=== PATIENT | female | born 2000 | race Caucasian/White ===

== ENCOUNTER 2021-02-10 05:18 | Inpatient (IN) ==
[2021-02-10] MEDS ORDERED: ONDANSETRON 4 MG/2 ML VIAL IV PRN (05:34)
[2021-02-10] MEDS ORDERED: MEPERIDINE 50 MG/1 ML VIAL IV PRN (05:34)
[2021-02-10] MEDS ORDERED: BUTORPHANOL 2 MG/ML VIAL IV PRN (05:34)
[2021-02-10] MEDS ORDERED: OXYTOCIN/LR 20 UNIT/1,000 ML BAG IV SCH (06:00)
[2021-02-10] MEDS ORDERED: LACTATED RINGERS 1,000 ML IV SCH ×3 (06:00→09:00)
[2021-02-10 06:45] LABS: Basophils % 0.4 % (0.0-0.8); Eosinophils % 0.4 % (0.00-10.9); Hematocrit 31.7 VOL% (35.7-47.0); Immature Granulocytes % 1.8 %; Immature Granulocytes Absolute 0.14 #; Lymphocytes # 1.7 10*3/uL (1.4-4.0); Lymphocytes % 22.4 % (21.3-54.2); Mean Corpuscular HGB Conc 31.5 GM/DL (32-36); Mean Corpuscular Volume 91.1 FL (87-102); Mean Platelet Volume 9.6 FL (9.6-12.0); Monocytes % 4.1 % (1.7-12.7); Neutrophils % 70.9 % (38.7-73.9); Platelet Count 234 T/CUMM (130-400); Red Blood Count 3.48 MC/CUMM (3.8-5.5); Red Cell Distribution Width 18.4 % (9.3-17.3); White Blood Count 7.8 T/CUMM (4-12)
[2021-02-10 07:18] LABS: Albumin 2.7 G/DL (3.4-5.0); Bilirubin,Total 1.5 MG/DL (0.20-1.00); Calcium 8.9 MG/DL (8.5-10.1); Osmolality,Calculated 275.7 MOS/KG (273-304); Potassium 3.3 MMOL/L (3.5-5.1); Total Protein 6.8 G/DL (6.4-8.2)
[2021-02-10] MEDS ORDERED: LACTATED RINGERS 1,000 ML IV ONE (08:33)
[2021-02-10] MEDS ORDERED: FAMOTIDINE 20 MG/2 ML VIAL IV ONE (08:33)
[2021-02-10] MEDS ORDERED: CITRIC ACID/SODIUM CITRATE 30 ML UDCUP PO ONE (08:33)
[2021-02-10] MEDS ORDERED: ePHEDrine 50 MG/ML VIAL IV PRN (08:33)
[2021-02-10] MEDS ORDERED: diphenhydrAMINE 50 MG/1 ML VIAL IV PRN ×2 (08:34)
[2021-02-10] MEDS ORDERED: NALOXONE 0.4 MG/ML VIAL IV PRN (08:34)
[2021-02-10] MEDS ORDERED: PROMETHAZINE 25 MG/1 ML VIAL IM ONE (08:34)
[2021-02-10] MEDS ORDERED: fentaNYL 2 MCG/ROPIV 0.2% EPID 100 ML EPIDURAL SCH ×2 (09:00)
[2021-02-10 10:26] LABS: Bilirubin,Urine Negative (Negative); Blood, Urine Negative (Negative); Calcium Oxalate Crystals,Urine Few /HPF (Few); Glucose,Urine (UA) 150 mg/dL (Negative); Ketones,Urine 5 mg/dL (Negative); Mucus,Urine Moderate /LPF (Occasional); Nitrite,Urine Negative (Negative); Protein,Urine Negative; RBC,Urine 3 /HPF (0-4); Urine Appearance CLEAR (Clear); Urine Color Yellow (Yellow); Urine Specific Gravity 1.025 (1.001-1.035)
[2021-02-10] MEDS ORDERED: LIDOCAINE 1% 50 ML VIAL ONE (12:20)
[2021-02-10] MEDS ORDERED: METHYLERGONOVINE 0.2 MG/1 ML AMP ONE (12:20)
[2021-02-10] MEDS ORDERED: miSOPROStoL 200 MCG TABLET ONE (12:20)
[2021-02-10] MEDS ORDERED: CARBOPROST TROMETHAMINE 250 MCG/ML AMP IM ONE (12:20)
[2021-02-10] MEDS ORDERED: METHYLERGONOVINE 0.2 MG/1 ML AMP IM ONE (12:51)
[2021-02-10 13:00] LABS: Cord Venous Blood HCO3 21.3 MMOL/L; Cord Venous Blood PCO2 47.5 MMHG; Cord Venous Blood PO2 30.1
[2021-02-10] MEDS ORDERED: BENZOCAINE 20%/MENTHOL 0.5% SPRAY 56 GM CAN TOP PRN (13:13)
[2021-02-10] MEDS ORDERED: WITCH HAZEL PADS 100/JAR TOP PRN (13:13)
[2021-02-10] MEDS ORDERED: ACETAMINOPHEN/CODEINE 300-30 MG TABLET PO PRN (13:13)
[2021-02-10] MEDS ORDERED: ACETAMINOPHEN 325 MG TABLET PO PRN (13:13)
[2021-02-10] MEDS ORDERED: BISACODYL 10 MG SUPP RECTAL PRN (13:13)
[2021-02-10] MEDS ORDERED: HYDROCORTISONE 2.5% RECTAL CREAM 30 GM TUBE TOP PRN (13:13)
[2021-02-10] MEDS ORDERED: DIPH/TET/ACEL PERT BOOSTER VACCINE 0.5 ML VIAL IM ONE (13:13)
[2021-02-10] MEDS ORDERED: MEASLES/MUMPS/RUBELLA VACCINE 0.5 ML VIAL SUBCUT ONE (13:13)
[2021-02-10] MEDS ORDERED: LANOLIN 50% CREAM 0.3 OZ TUBE TOP PRN (13:13)
[2021-02-10] MEDS ORDERED: OXYTOCIN/LR 20 UNIT/1,000 ML BAG IV ONE (16:58)
[2021-02-10] MEDS: ACETAMINOPHEN/CODEINE 300-30 MG TABLET PO PRN (17:36)
[2021-02-10] MEDS: IBUPROFEN 800 MG TABLET PO PRN (19:23)
[2021-02-10] MEDS: DOCUSATE SODIUM 100 MG CAPSULE PO SCH (20:46)
[2021-02-10] MEDS ORDERED: POTASSIUM CHLORIDE 20 MEQ TABLET PO SCH (21:00)
[2021-02-11] MEDS: ACETAMINOPHEN/CODEINE 300-30 MG TABLET PO PRN ×2 (01:05→20:04)
[2021-02-11] MEDS: IBUPROFEN 800 MG TABLET PO PRN ×2 (01:05→20:04)
[2021-02-11 05:34] LABS: Basophils % 0.2 % (0.0-0.8); Eosinophils # 0.1 10*3/uL (0.0-0.87); Eosinophils % 0.4 % (0.00-10.9); Hematocrit 26.3 VOL% (35.7-47.0); Hemoglobin 8.1 GM/DL (12.0-16.0); Immature Granulocytes % 1.6 %; Immature Granulocytes Absolute 0.19 #; Lymphocytes # 1.6 10*3/uL (1.4-4.0); Lymphocytes % 13.5 % (21.3-54.2); Mean Corpuscular HGB Conc 30.8 GM/DL (32-36); Mean Platelet Volume 9.8 FL (9.6-12.0); Monocytes % 4.5 % (1.7-12.7); Neutrophils % 79.8 % (38.7-73.9); Platelet Count 212 T/CUMM (130-400); Red Blood Count 2.89 MC/CUMM (3.8-5.5); Red Cell Distribution Width 18.2 % (9.3-17.3); White Blood Count 11.7 T/CUMM (4-12)
[2021-02-11] MEDS: DOCUSATE SODIUM 100 MG CAPSULE PO SCH ×2 (08:05→20:04)
[2021-02-11] MEDS: IRON (CARBONYL)/VIT C/B12/FA TABLET PO SCH (08:32)
[2021-02-11] MEDS ORDERED: MULTIVITAMIN (PRENATAL) TABLET PO SCH (09:00)
[2021-02-12] MEDS: IRON (CARBONYL)/VIT C/B12/FA TABLET PO SCH (09:12)
[2021-02-12] MEDS: DOCUSATE SODIUM 100 MG CAPSULE PO SCH (09:12)
[2021-02-12 09:27] VITALS: BP 108/62
== END 2021-02-12 13:32 | disposition home or self-care (01) | DRG 560 ==
LOC: N.LD 05:18 → N.OB 17:20
PROVIDERS: ADMIT Obstetrics & Gynecology; ATTEND Obstetrics & Gynecology